=== PATIENT | male | born 1930 | race Caucasian/White ===

== ENCOUNTER 2016-12-07 20:36 | Emergency (ER) | payer MEDICARE, MEDICAID ==
[~2016-12-07] VITALS: Ht 175.3 cm; Wt 72.6 kg
--- NOTE | 2016-12-07 21:30 | NUR ---
PT A/OX2 BREATHING EFFORTLESSLY ON ROOM AIR, PT LIV FROM CUSTODIAL, PT WAS WALKING AND HIT HIS FOREHEAD INTO THE PAPER TOWEL DISPENSER, NO LOC PER EMS AND PT, PT IN GOWN ON MONITOR, MADE AWARE WILL CONTINUE TO MONITOR.
--- NOTE | 2016-12-07 22:15 | NUR ---
PT TO CT
--- NOTE | 2016-12-07 23:06 | NUR ---
CALLED [facility] FOR TRANSPORT BACK TO [facility], ETA 5 MIN
--- NOTE | 2016-12-07 23:24 | NUR ---
REPORT GIVEN TO EMT AND TO FACILITY
[2016-12-07 23:35] VITALS: BP 140/72
== END 2016-12-07 23:35 ==
LOC: ER 20:42
DX: S01.81XA Laceration without foreign body of other part of head, initial encounter (principal); F03.90 Unspecified dementia, unspecified severity, without behavioral disturbance, psychotic disturbance, mood disturbance, and anxiety; I10 Essential (primary) hypertension; I25.10 Atherosclerotic heart disease of native coronary artery without angina pectoris; J44.9 Chronic obstructive pulmonary disease, unspecified; W22.8XXA Striking against or struck by other objects, initial encounter; Y93.01 Activity, walking, marching and hiking; Y92.89 Other specified places as the place of occurrence of the external cause; Y99.8 Other external cause status
CPT/HCPCS: 70450; 72125; 99284; A4217; A4606; A6402; Z7610

== ENCOUNTER 2017-11-01 14:14 | Inpatient (IN) | payer MEDICARE, MEDICAID ==
[~2017-11-01] VITALS: Ht 180.3 cm; Wt 87.1 kg
--- NOTE | 2017-11-01 14:40 | NUR ---
BB PRIVATE EMS FROM [facility], SENT BY DR FELIZ FOR FAILURE TO THRIVE. VSS. FAMILY MEMBERS AT BS. SEEN BY MD FOR EVAL. SAFETY AND COMFORT MEASURES PROVIDED. WILL MONITOR.
[2017-11-01] MEDS ORDERED: IV NS 0.9% 500 ML BAG IV ONE (15:00)
[2017-11-01] MEDS ORDERED: ATOR10TA PO (15:09)
[2017-11-01] MEDS ORDERED: FENT1PAT2 TD (15:09)
[2017-11-01] MEDS ORDERED: BISA10SU8 RC (15:09)
[2017-11-01] MEDS ORDERED: ASPI-1169 PO (15:09)
[2017-11-01] MEDS ORDERED: BRIM5DRO EACHEYE (15:09)
[2017-11-01] MEDS ORDERED: DOCU-141 PO (15:09)
[2017-11-01] MEDS ORDERED: ALBU2.5V38 IH (15:09)
[2017-11-01] MEDS ORDERED: NA P133E RC (15:09)
[2017-11-01] MEDS ORDERED: CLOP75TA15 PO (15:12)
[2017-11-01] MEDS ORDERED: QUET25TA PO (15:12)
[2017-11-01] MEDS ORDERED: MELA5TAB PO (15:12)
[2017-11-01] MEDS ORDERED: OXYC-128 PO (15:12)
[2017-11-01] MEDS ORDERED: MAGN400O6 PO (15:12)
[2017-11-01] MEDS ORDERED: BENA20TA9 PO (15:12)
[2017-11-01] MEDS ORDERED: ACET-868 PO (15:13)
[2017-11-01] MEDS ORDERED: BUDE10.2 IH (15:13)
[2017-11-01] MEDS ORDERED: CHOL100044 PO (15:13)
[2017-11-01 15:17] LABS: BASOPHILS # (AUTO) 0.1 /CMM (0.0-0.2); EOSINOPHILS % (AUTO) 5.5 % (0.0-6.0); HEMATOCRIT 29 % (39-51); HEMOGLOBIN 9.5 g/dL (13.5-17.5); LYMPHOCYTES # (AUTO) 1.5 /CMM (0.8-4.8); LYMPHOCYTES % (AUTO) 14.6 % (20.0-44.0); MEAN CORPUSCULAR HGB CONC 32 g/dl (31.0-36.0); MEAN CORPUSCULAR VOLUME 68 fL (80-96); MONOCYTES # (AUTO) 0.8 /CMM (0.1-1.30); MONOCYTES % (AUTO) 7.2 % (2.0-12.0); NEUTROPHILS # (AUTO) 7.5 /CMM (1.8-8.9); NEUTROPHILS % (AUTO) 71.7 % (43.0-81.0); PLATELET COUNT (AUTO) 294 /CMM (150-450); RDW COEFFICIENT OF VARIATION 17.6 (11.5-15.0); RED BLOOD CELL COUNT(AUTO) 4.32 MIL/uL (4.5-6.0); WHITE BLOOD COUNT (AUTO) 10.5 K/uL (4.3-11.0)
[2017-11-01 15:25] LABS: CALCIUM, SERUM 9.2 mg/dL (8.5-10.1); CARBON DIOXIDE 27 mmol/L (21-32); CHLORIDE 105 mmol/L (98-107); CREATININE 1.9 mg/dL (0.6-1.3); GLUCOSE 111 mg/dL (74-106); POTASSIUM 4.5 mmol/L (3.5-5.1); SODIUM SERUM 137 mmol/L (136-145); UREA NITROGEN, BLOOD 26 mg/dL (7-18)
[2017-11-01 15:29] LABS: ALANINE AMINOTRANSFERASE 45 U/L (12-78); ALBUMIN 3.1 g/dL (3.4-5.0); ALCOHOL, BLOOD < 3 mg/dL (0-0); ALKALINE PHOSPHATASE 116 U/L (46-116); ASPARTATE AMINOTRANSFERASE 33 U/L (15-37); BILIRUBIN,DIRECT 0.2 mg/dL (0.0-0.2); BILIRUBIN,TOTAL 0.5 mg/dL (0.2-1.0); SALICYLATE 1.2 mg/dL (2.8-20.0); TOTAL PROTEIN, SERUM 7.1 g/dL (6.4-8.2)
[2017-11-01 15:30] LABS: ACETAMINOPHEN < 2 ug/ml (10-30)
--- NOTE | 2017-11-01 15:49 | NUR ---
CALLED [employer] CAROUSEL ATTENDANT WAS PAGED.
[2017-11-01] MEDS ORDERED: oxyCODONE/APAP (5/325 MG) 1 UDTAB TABLET PO PRN (16:00)
[2017-11-01] MEDS ORDERED: ACETAMINOPHEN 325 MG TABLET PO PRN ×2 (16:00→16:30)
[2017-11-01] MEDS ORDERED: MAGNESIUM HYDROXIDE 30 ML UDC PO PRN ×2 (16:00→16:30)
[2017-11-01] MEDS ORDERED: NA PHOS,M-B/NA PHOS,DI-BA 1 EA ENEMA RC PRN (16:00)
--- NOTE | 2017-11-01 16:29 | NUR ---
REPORT GIVEN TO RAN MORFIN FOR MS ROOM.
[2017-11-01] MEDS ORDERED: ONDANSETRON HCL/PF 4 MG/2 ML VIAL IVP PRN (16:30)
[2017-11-01] MEDS ORDERED: HYDROCODONE/APAP 5/325MG 1 EACH TABLET PO PRN (16:30)
[2017-11-01] MEDS ORDERED: MAG HYDROX/AL HYDROX/SIMETH 30 ML UDC PO PRN (16:30)
[2017-11-01] MEDS ORDERED: Z GUARD REMEDY 2 OZ OINT TP PRN (16:30)
[2017-11-01] MEDS ORDERED: ZOLPIDEM TARTRATE 5 MG TABLET PO PRN (16:30)
--- NOTE | 2017-11-01 17:00 | NUR ---
MS COMPLETION ENGINEER NOTES RECEIVED PT FROM ER NURSE IN STABLE CONDITION. PT IS A/O X1-2. NO SOB OR SIGNS OF DISTRESS NOTED. BREATHING IS EVEN AND UNLABORED. PT IS ON RA AND SATING WELL. HE WILL BE ADMITTED UNDER DR. FELIZ FOR FAILURE TO THRIVE ALONG WITH ACUTE RENAL FAILURE. IV NOTED TO RIGHT AC. IV NOTED TO BE PATENT AND INTACT. NO REDNESS OR SIGNS OF INFILTRATION NOTED. PT WAS ORIENTED TO ROOM AND VERBALIZED UNDERSTANDING OF USE OF CALL LIGHT. BELONGINGS VERIFIED BY PLASTIC BOAT PATCHER AND DOCUMENTED IN PT'S CHART. ORDERS NOTED BY . WILL BEGIN ADMISSION PROCESS AND AWAIT FOR ANY FURTHER ORDERS Addendum: 11/01/17 at 1848 by JANIE KELLY RN PT REFUSED TO TAKE OFF HIS PANTS AND SKIN ASSESSMENT FROM THE WAIST DOWN
[2017-11-01] MEDS ORDERED: FENTANYL TD PATCH (12 MCG/HR) 12 MCG/HR PATCH.TD72 TD SCH (18:00)
[2017-11-01] MEDS: CHOLECALCIFEROL 1,000 UNIT TABLET (VIT D3) PO SCH (18:16)
[2017-11-01] MEDS: BRIMONIDINE TARTRATE OPHT SOLN 5 ML BOTTLE EACHEYE SCH (18:17)
--- NOTE | 2017-11-01 18:45 | NUR ---
MS RN CLOSING NOTES PT REMAINS STABLE SINCE ADMISSION. VITALS STABLE AT THIS TIME. HE DENIES ANY PAIN. PT TOLERATING NS INFUSION WELL. HE WAS ABLE TO EAT 100% OF HIS DINNER. NEEDS ANTICIPATED FOR AND MET. BED IN LOW LOCKED POSITION, SIDE RAILS UP X2, CALL LIGHT WITHIN REACH, BED ALARM ON. WILL ENDORSE TO NIGHTSHIFT NURSE FOR RADHA
[2017-11-01] MEDS: ALBUTEROL FS 2.5 MG/0.5 ML VIAL.NEB NEB SCH ×2 (19:30→21:47)
--- NOTE | 2017-11-01 19:30 | NUR ---
MS HOLLEY INITIAL NOTES GOT REPORT FROM AM NURSE AND SEEN PT IN BED ON SITTING POSITION WHILE WATCHING TV AT THE SAME TIME. NOTICED HE'S WEARING HEADPHONE AND PT STATED THAT HE'S HEARING AID. RE-ORIENTED WHERE HE AT AND HE UNDERSTOOD WELL. OFFERED HIM SOME SNACK LATER AND PT STATED ONLY SOME JUICE AND CRACKERS. HE ALSO ON IVF OF NS AT 75ML/HR INFUSING ON HIS RIGHT FOREARM. NO REDNESS OR INFILTRATED NOTED. DENIES ANY PAIN OR ANY DISCOMFORT. KEPT HIM WARM AND COMFORTABLE AT ALL TIMES. PLACE CALL LIGHT AT REACH. BED ALARM SET FOR PT SAFETY.
[2017-11-01 20:00] VITALS: BP 111/57
[2017-11-01 20:34] VITALS: BP 111/57
[2017-11-01] MEDS ORDERED: Medication Not On Formulary EA (Budesonide/Formoterol Fumarate (Symbicort 160-4.5 Mcg In IH SCH (21:00)
[2017-11-01] MEDS: QUETIAPINE FUMARATE 25 MG TABLET PO SCH (21:24)
[2017-11-01] MEDS: ATORVASTATIN 10 MG TABLET PO SCH (21:24)
[2017-11-01] MEDS: DOCUSATE SODIUM 100 MG CAPSULE PO SCH (21:24)
--- NOTE | 2017-11-01 21:54 | NUR ---
MS PATTERNMAKER PLASTER NOTES OFFERED SNACKS JELO, PUDDING AND APPLE SAUCE THEN PT. STATED I WANT EVERYTHING. DAUGHTER AT THE BEDSIDE AND SHE'S HAPPY WITH THE RESPONSE OF THE PT . HE ATE AND DRINK WELL . NO ASPIRATION NOTED. ROUTINE MEDS ALSO GIVEN AND TOLERATED WELL. KEPT HIM WARM AND COMFORTABLE AT ALL TIMES. WILL CONTINUE MONITORING.
[2017-11-01] MEDS ORDERED: Medication Not On Formulary EA (Melatonin 10 MG) PO SCH (22:00)
--- NOTE | 2017-11-02 | NUR ---
MS GLASS PULVERIZER EQUIPMENT OPERATOR NOTES PT SLEEPING COMFORTABLY IN BED WITHOUT ANY ACUTE DISTRESS NOTED. AROUSES TO TOUCH. IVF STILL INFUSING . KEPT HIM WARM AND COMFORTABLE AT ALL TIMES. WILL CONTINUE TO MONITOR.
[2017-11-02] MEDS: BRIMONIDINE TARTRATE OPHT SOLN 5 ML BOTTLE EACHEYE SCH ×3 (01:10→17:02)
[2017-11-02] MEDS: ALBUTEROL FS 2.5 MG/0.5 ML VIAL.NEB NEB SCH ×6 (03:35→23:03)
[2017-11-02] MEDS: IV NS 0.9% 1,000 ML IV PRN (06:21)
--- NOTE | 2017-11-02 07:07 | NUR ---
MS PURCHASING CLERK CLOSING NOTES PT REMAINS SLEEPING COMFORTABLY IN BED WITHOUT ANY ACUTE DISTRESS NOTED. RESPIRATION EVEN AND NON-LABORED. STILL NEEDS TO RE-ORIENTED HIM HOW TO USED THE CALL LIGHT SYSTEM AND BED ALARM SET FOR SAFETY. STABLE STARR THE NIGHT AND SLEPT WELL. ABLE TO ATE WITHOUT ANY ASPIRATION NOTED. KEPT HIM WARM AND COMFORTABLE AT ALL TIMES. PLACE CALL LIGHT AT REACH. STILL ON IVF NS AT 75ML/HR. ENDORSE TO AM NURSE FOR CONTINUITY OF CARE. Addendum: 11/02/17 at 0707 by NE PÉREZ LVN
--- NOTE | 2017-11-02 07:15 | NUR ---
RN NOTES PT IS LAYING DOWN IN BED, AWAKE, RESTING COMFORTABLY. PT ON RA, RESPIRATIONS ARE EVEN AND UNLABORED. IV ON RFA INTACT AND SL. NO SIGNS OF DISTRESS NOTED. SAFETY MEASURES ARE IN PLACE, CALL LIGHT IS IN REACH. WILL CONTINUE TO MONITOR.
[2017-11-02 07:38] LABS: HEMATOCRIT 29 % (39-51); HEMOGLOBIN 8.8 g/dL (13.5-17.5); MEAN CORPUSCULAR HGB CONC 30 g/dl (31.0-36.0); MEAN CORPUSCULAR VOLUME 71 fL (80-96); PLATELET COUNT (AUTO) 258 /CMM (150-450); RDW COEFFICIENT OF VARIATION 19.4 (11.5-15.0); RED BLOOD CELL COUNT(AUTO) 4.09 MIL/uL (4.5-6.0); WHITE BLOOD COUNT (AUTO) 9.3 K/uL (4.3-11.0)
[2017-11-02 07:57] LABS: CALCIUM, SERUM 8.5 mg/dL (8.5-10.1); CARBON DIOXIDE 23 mmol/L (21-32); CHLORIDE 111 mmol/L (98-107); CREATININE 1.4 mg/dL (0.6-1.3); GLUCOSE 89 mg/dL (74-106); MAGNESIUM 1.9 mg/dL (1.8-2.4); PHOSPHORUS 4.1 mg/dL (2.5-4.9); POTASSIUM 4.3 mmol/L (3.5-5.1); SODIUM SERUM 144 mmol/L (136-145); UREA NITROGEN, BLOOD 20 mg/dL (7-18)
[2017-11-02 08:00] VITALS: BP 105/57
[2017-11-02] MEDS: CLOPIDOGREL BISULFATE 75 MG TABLET PO SCH (08:40)
[2017-11-02] MEDS: FLUTICASONE/VILANTEROL 1 EACH BLST.W.DEV IH SCH (08:40)
[2017-11-02] MEDS: ASPIRIN 81 MG TAB.CHEW PO SCH (08:40)
[2017-11-02 08:53] LABS: BAND % (MANUAL) 1 % (0.0-5.0); EOSINOPHILS % (MANUAL) 9 % (0-4); LYMPHOCYTES % (MANUAL) 24 % (16-48); MONOCYTES % (MANUAL) 9 % (0-11.0); NEUTROPHILS % (MANUAL) 57 (42-76)
--- NOTE | 2017-11-02 09:28 | NUR ---
WOUND CARE CONSULT: PT IS CONTINENT AND AMBULATORY WITH MULTIPLE SKIN LESIONS ON BACK AND RAISED AREA TO LEFT SHOULDER REGION, NO REDNESS, TENDERNESS OR DRAINAGE NOTED. DEFER TO . WILL SEE MERE. GIORGIO SCORE IS CURRENTLY 22. Addendum: 11/02/17 at 0929 by ARIAN BOGGS WNDNU Amended: Links added.
--- NOTE | 2017-11-02 10:30 | NUR ---
SHELBIE NOTES NASAL CANNULA ADDED WITH NON REBREATHER MASK TO PREVENT DESATURATION WHEN MASK REMOVED DURING EATING OR DRINKING. O2 SAT 95% Addendum: 11/02/17 at 1047 by VENKAT REBOLLEDO RN DISREGARD PREVIOUS NOTE, WRONG PATIENT.
[2017-11-02 16:00] VITALS: BP 122/70
[2017-11-02] MEDS: CHOLECALCIFEROL 1,000 UNIT TABLET (VIT D3) PO SCH (17:02)
--- NOTE | 2017-11-02 18:47 | NUR ---
RN NOTES PT SITTING UP IN BED, WATCHING TV, RESTING COMFORTABLY. PT ON RA, RESPIRATIONS ARE EVEN AND UNLABORED. IV ON RFA INTACT AND RUNNING NS @ 75ML/HR. ALL MEDS WERE GIVEN ORDERED AND PT NEEDS MET. NO SIGNS OF DISTRESS NOTED. SAFETY MEASURES ARE IN PLACE, CALL LIGHT IS IN REACH. WILL ENDORSE TO CONE FORMER RN FOR CONTINUITY OF CARE.
--- NOTE | 2017-11-02 19:35 | NUR ---
MS RN NOTES RECEIVED ON BED A/O X1-2,BREATHING REGULAR,NOT IN ANY FORM OF DISTRESS.IVF NS AT 75ML/HR RATE IN PROGRESS ON RFA,SITE PATENT.BLIND ON LEFT EYE,HARD OF HEARING.CONTINENT PER URINAL.CALL LIGHT IN REACH,NEEDS ANTICIPATED.
[2017-11-02 20:00] VITALS: BP 112/58
[2017-11-02] MEDS: DOCUSATE SODIUM 100 MG CAPSULE PO SCH (22:07)
[2017-11-02] MEDS: ATORVASTATIN 10 MG TABLET PO SCH (22:07)
[2017-11-02] MEDS: QUETIAPINE FUMARATE 25 MG TABLET PO SCH (22:07)
[2017-11-03] MEDS: BRIMONIDINE TARTRATE OPHT SOLN 5 ML BOTTLE EACHEYE SCH ×3 (01:30→17:29)
--- NOTE | 2017-11-03 02:00 | NUR ---
MS RN NOTES REFUSED BREATHING TREATMENT AT MIDNIGHT
[2017-11-03] MEDS: ALBUTEROL FS 2.5 MG/0.5 ML VIAL.NEB NEB SCH ×6 (03:30→23:57)
[2017-11-03] MEDS: IV NS 0.9% 1,000 ML IV PRN (03:47)
--- NOTE | 2017-11-03 06:19 | NUR ---
MS RN NOTES RESTING COMFORTABLY ON BED.IVF IN PROGRESS,NO EPISODE OF SOB,COMPLIANT WITH CARE AND MEDS.CALL LIGHT IN REACH,NEEDS ATTENDED.WILL ENDORSE TO VENKAT MORFIN FOR RADHA.
--- NOTE | 2017-11-03 07:10 | NUR ---
RN NOTES PT IS LAYING DOWN IN BED, SLEEPING COMFORTABLY. PT ON RA, RESPIRATIONS ARE EVEN AND UNLABORED. IV ON RFA INTACT AND RUNNING NS @ 75ML/HR. NO SIGNS OF DISTRESS NOTED. SAFETY MEASURES ARE IN PLACE, CALL LIGHT IS IN REACH. WILL CONTINUE TO MONITOR.
[2017-11-03 08:00] VITALS: BP 130/66
[2017-11-03] MEDS: ASPIRIN 81 MG TAB.CHEW PO SCH (08:02)
[2017-11-03] MEDS: FLUTICASONE/VILANTEROL 1 EACH BLST.W.DEV IH SCH (08:02)
[2017-11-03] MEDS: CLOPIDOGREL BISULFATE 75 MG TABLET PO SCH (08:02)
[2017-11-03 14:43] LABS: CALCIUM, SERUM 8.8 mg/dL (8.5-10.1); CARBON DIOXIDE 25 mmol/L (21-32); CHLORIDE 106 mmol/L (98-107); CREATININE 1.3 mg/dL (0.6-1.3); GLUCOSE 103 mg/dL (74-106); SODIUM SERUM 138 mmol/L (136-145); UREA NITROGEN, BLOOD 20 mg/dL (7-18)
[2017-11-03 14:53] LABS: HEMATOCRIT 31 % (39-51); HEMOGLOBIN 9.1 g/dL (13.5-17.5); MEAN CORPUSCULAR HGB CONC 30 g/dl (31.0-36.0); MEAN CORPUSCULAR VOLUME 72 fL (80-96); PLATELET COUNT (AUTO) 281 /CMM (150-450); RDW COEFFICIENT OF VARIATION 19.5 (11.5-15.0); RED BLOOD CELL COUNT(AUTO) 4.26 MIL/uL (4.5-6.0)
[2017-11-03 14:57] LABS: THYROID STIMULATING HORMONE 1.099 uIU/mL (0.358-3.74)
[2017-11-03 15:03] LABS: IRON, SERUM 21 ug/dl (50-175); TOTAL IRON BINDING CAPACITY 392 ug/dl (250-450)
[2017-11-03 15:23] LABS: BAND % (MANUAL) 2 % (0.0-5.0); EOSINOPHILS % (MANUAL) 10 % (0-4); LYMPHOCYTES % (MANUAL) 34 % (16-48); MONOCYTES % (MANUAL) 2 % (0-11.0); NEUTROPHILS % (MANUAL) 52 (42-76)
[2017-11-03 15:30] LABS: FERRITIN 7 ng/mL (8-388)
[2017-11-03 16:00] VITALS: BP_SYST 130; BP_SYST 141; BP_DIAS 59; BP_DIAS 66
[2017-11-03] MEDS: CHOLECALCIFEROL 1,000 UNIT TABLET (VIT D3) PO SCH (17:29)
--- NOTE | 2017-11-03 18:55 | NUR ---
RN NOTES PT IS SITTING UP IN BED, RESTING COMFORTABLY. PT ON RA, RESPIRATIONS ARE EVEN AND UNLABORED. IV ON RFA INTACT AND RUNNING NS @ 75ML/HR. ALL MEDS WERE GIVEN ORDERED AND PT NEEDS MET. NO SIGNS OF DISTRESS NOTED. SAFETY MEASURES ARE IN PLACE, CALL LIGHT IS IN REACH. WILL ENDORSE TO PARK INTERPRETIVE RANGER RN FOR CONTINUITY OF CARE.
--- NOTE | 2017-11-03 19:25 | NUR ---
MS RN OPENING NOTES: RECEIVED PT IN BED AND IS ASLEEP AT THIS TIME WITH HIS HEADPHONES ON. PT ON ROOM AIR. PT ON IV FLUIDS AND IS BEING INFUSED WITH IV NS AT 75ML/HR. CALL LIGHT WITHIN PT'S REACH. BED KEPT IN LOW, LOCKED POSITION, AND SIDE RAILS X 2UP. WILL CONTINUE TO MONITOR PT.
[2017-11-03 20:00] VITALS: BP 118/56
[2017-11-03] MEDS: QUETIAPINE FUMARATE 25 MG TABLET PO SCH (21:03)
[2017-11-03] MEDS: ATORVASTATIN 10 MG TABLET PO SCH (21:03)
[2017-11-03] MEDS: DOCUSATE SODIUM 100 MG CAPSULE PO SCH (21:03)
[2017-11-04] MEDS: IV NS 0.9% 1,000 ML IV PRN (00:18)
[2017-11-04] MEDS: BRIMONIDINE TARTRATE OPHT SOLN 5 ML BOTTLE EACHEYE SCH ×2 (00:19→08:05)
[2017-11-04] MEDS: ALBUTEROL FS 2.5 MG/0.5 ML VIAL.NEB NEB SCH ×4 (03:06→14:26)
--- NOTE | 2017-11-04 03:22 | NUR ---
MS RN NOTES: PT FOUND WITH IV PULLED OUT. NO BLEEDING NOTED. EXPLAINED TO PT THAT HE NEEDS A NEW ONE. EXPLAINED TO PT RISKS AND BENEFITS OF HAVING AN IV. EXPLAINED TO PT THAT HE NEEDS IV NS FOR HYDRATION. PT REFUSING. CHARGE NURSE AWARE. WILL TRY AGAIN AT ANOTHER TIME.
--- NOTE | 2017-11-04 05:43 | NUR ---
RN NOTES: PT STILL REFUSING IV START. EXPLAINED TO PT THE RISKS AND BENEFITS OF HAVING AN IV AND THE IMPORTANCE OF NS HYDRATION. PT STILL REFUSING. ENCOURAGED PT TO DRINK PO WATER. Addendum: 11/04/17 at 0546 by MARÍA NEVAREZ RN CHARGE NURSE AWARE.
--- NOTE | 2017-11-04 06:39 | NUR ---
MS RN CLOSING NOTES: ALL NEEDS WERE ATTENDED AND ANTICIPATED FOR. PT KEPT CLEAN, DRY, AND COMFORTABLE. PT REFUSING TO HAVE IV INSERTED. OFFERED TWICE AND STILL REFUSED. CALL LIGHT WITHIN PT'S REACH. BED KEPT IN LOW, LOCKED POSITION, AND SIDE RAILS X 2UP. WILL ENDORSE TO AM NURSE FOR RADHA.
--- NOTE | 2017-11-04 07:40 | NUR ---
MS RN OPENING NOTES RECEIVED PT LAYING IN BED WITH HOB SLIGHTLY ELEVATED, SLEEPING COMFORTABLY. EASILY TO AROUSE, RESPONSIVE. RESPIRATIONS ARE EVEN AND UNLABORED, NOT IN ANY ACUTE DISTRESS NOTED. RT AT BEDSIDE TO ADMINISTER BREATHING TX. NO C/O PAIN, N/V, SOB AT THIS TIME. NO IV ACCESS AT THIS TIME. WILL CONTINUE TO ATTEMPT TO INSERT NEW IV. WILL CONTINUE TO MONITOR THROUGHOUT SHIFT FOR CONTINUITY OF CARE.
[2017-11-04 08:00] VITALS: BP 94/51
[2017-11-04] MEDS: ASPIRIN 81 MG TAB.CHEW PO SCH (08:04)
[2017-11-04] MEDS: FLUTICASONE/VILANTEROL 1 EACH BLST.W.DEV IH SCH (08:04)
[2017-11-04] MEDS: CLOPIDOGREL BISULFATE 75 MG TABLET PO SCH (08:04)
[2017-11-04 08:50] VITALS: BP 94/57
--- NOTE | 2017-11-04 10:00 | NUR ---
MS RN NOTES PT SEEN AND EXAMINED BY DR. FELIZ W/ ORDERS FOR DISCHARGE. DISCHARGE PAPERWORKS READY, WAITING FOR DAUGHTER TO SIGN PAPERWORK. CALLED [facility], SPOKE WITH EZIO FOR REPORT.
--- NOTE | 2017-11-04 14:45 | NUR ---
PRECISION FARMING COORDINATOR NOTE PT DISCHARGED TO [facility] VIA AMBULANCE IN STABLE CONDITION ACCOMPANIED BY DTR ZOYA. ALL DUE MEDS GIVEN, NEEDS MET AND RENDERED. PT REMAINS A/O X2, AFEBRILE. RESPIRATIONS ARE EVEN AND UNLABORED, NOT IN ANY ACUTE DISTRESS NOTED. DENIES ANY PAIN, N/V, SOB. NO IV ACCESS. PT NOTED WITH NUMEROUS SKIN TAGS TO BACK AND LUMP ON UPPER LEFT BACK, PHOTOS TAKEN AND PLACED IN CHART. ABDOMEN REMAINS SOFT AND NONDISTENDED, BOWEL SOUNDS ARE PRESENT IN ALL 4 QUADRANTS UPON AUSCULTATION. DENIES ANY BLADDER DISCOMFORT. DTR ZOYA CAME TO GIVE HIM A CHANGE OF CLOTHES, ALL BELONGINGS TAKEN WITH PT. EXPLAINED DISCHARGED PAPERWORK TO PT AND DTR WITH VERBAL AND WRITTEN UNDERSTANDING. ID BAND REMOVED. PT LEFT VIA GURNEY IN STABLE CONDITION.
[2017-11-04] MEDS ORDERED: FENTANYL TD PATCH (12 MCG/HR) 12 MCG/HR PATCH.TD72 TD SCH (19:00)
== END 2017-11-04 14:51 | DRG 682 ==
LOC: ER 14:17 → MED 16:49
PROVIDERS: ADMIT Internal Medicine; ATTEND Internal Medicine
DX: N17.0 Acute kidney failure with tubular necrosis (principal); G92 Toxic encephalopathy; R62.7 Adult failure to thrive; I25.10 Atherosclerotic heart disease of native coronary artery without angina pectoris; I25.2 Old myocardial infarction; E86.0 Dehydration; I12.9 Hypertensive chronic kidney disease with stage 1 through stage 4 chronic kidney disease, or unspecified chronic kidney disease; N18.9 Chronic kidney disease, unspecified; E78.5 Hyperlipidemia, unspecified; M19.90 Unspecified osteoarthritis, unspecified site; D63.1 Anemia in chronic kidney disease; J44.9 Chronic obstructive pulmonary disease, unspecified; F32.9 Major depressive disorder, single episode, unspecified; F41.9 Anxiety disorder, unspecified; G40.909 Epilepsy, unspecified, not intractable, without status epilepticus; G89.29 Other chronic pain; Z91.14 Patient's other noncompliance with medication regimen; F29 Unspecified psychosis not due to a substance or known physiological condition; D17.1 Benign lipomatous neoplasm of skin and subcutaneous tissue of trunk; L72.3 Sebaceous cyst; H54.61 Unqualified visual loss, right eye, normal vision left eye; F03.90 Unspecified dementia, unspecified severity, without behavioral disturbance, psychotic disturbance, mood disturbance, and anxiety; Z95.5 Presence of coronary angioplasty implant and graft
CPT/HCPCS: 36415; 70450-TC; 76770-TC; 80048-TC; 80076-TC; 82140-TC; 82728-TC; 83540-TC; 83735-TC; 84100-TC; 84443-TC; 85025-TC; 87081-TC; A4606; G0480; J7030; J7040; Z7610

== ENCOUNTER 2018-05-23 10:00 | Inpatient (IN) | payer MEDICARE, MEDICAID ==
[~2018-05-23] VITALS: Ht 172.7 cm; Wt 85.7 kg
[~2018-05-23 10:00] MED LIST: ACET-868 PO; ALBU2.5V38 IH; ALPHAGAN 0.2% EACHEYE; ASPI-1169 PO; ATOR10TA PO; BENA20TA9 PO; BISA10SU8 RC; BUDE10.2 IH; CHOL100044 PO; CLOP75TA15 PO; DOCU-141 PO; FENT1PAT2 TD; MAGN400O6 PO; MELA3TAB PO; NA P133E RC; OXYC-128 PO; QUET25TA PO
--- NOTE | 2018-05-23 10:10 | NUR ---
PT LIV [facility] unit 190 "From [facility] resection of left upper back cyst. ALERT AND ORIENTED X 2, CONFUSED AT TIMES. ON ROOM AIR, BREATHING EVENLY AND UNLABORED. SKIN WARM TO TOUCH, AND WNL. NO FACIAL GRIMACE NOTED AT THIS TIME. IV ACCESS INITIATED. KEPT COMFORTABLE. WILL CONTINUE TO MONITOR ACCORDINGLY.
[2018-05-23 10:58] LABS: BASOPHILS # (AUTO) 0.2 /CMM (0.0-0.2); BASOPHILS % (AUTO) 2.2 % (0.0-2.0); EOSINOPHILS % (AUTO) 6.4 % (0.0-6.0); HEMATOCRIT 26 % (39-51); HEMOGLOBIN 7.5 g/dL (13.5-17.5); LYMPHOCYTES # (AUTO) 1.5 /CMM (0.8-4.8); LYMPHOCYTES % (AUTO) 17.1 % (20.0-44.0); MEAN CORPUSCULAR HGB CONC 29 g/dl (31.0-36.0); MEAN CORPUSCULAR VOLUME 67 fL (80-96); MONOCYTES # (AUTO) 0.8 /CMM (0.1-1.30); MONOCYTES % (AUTO) 8.9 % (2.0-12.0); NEUTROPHILS # (AUTO) 5.8 /CMM (1.8-8.9); NEUTROPHILS % (AUTO) 65.4 % (43.0-81.0); PLATELET COUNT (AUTO) 369 /CMM (150-450); RED BLOOD CELL COUNT(AUTO) 3.93 MIL/uL (4.5-6.0); WHITE BLOOD COUNT (AUTO) 8.9 K/uL (4.3-11.0)
[2018-05-23] MEDS ORDERED: IV NS 0.9% 1,000 ML BAG IV ONE (11:00)
[2018-05-23 11:08] LABS: CALCIUM, SERUM 8.9 mg/dL (8.5-10.1); CARBON DIOXIDE 26 mmol/L (21-32); CHLORIDE 104 mmol/L (98-107); CREATININE 1.7 mg/dL (0.6-1.3); GLUCOSE 97 mg/dL (74-106); POTASSIUM 4.6 mmol/L (3.5-5.1); SODIUM SERUM 137 mmol/L (136-145); UREA NITROGEN, BLOOD 33 mg/dL (7-18)
[2018-05-23 11:25] LABS: BAND % (MANUAL) 1 % (0.0-5.0); EOSINOPHILS % (MANUAL) 9 % (0-4); LYMPHOCYTES % (MANUAL) 16 % (16-48); MONOCYTES % (MANUAL) 4 % (0-11.0); NEUTROPHILS % (MANUAL) 70 (42-76)
[2018-05-23] MEDS ORDERED: HYDROCODONE/APAP 10/325MG 1 EA TABLET PO PRN (14:00)
[2018-05-23] MEDS ORDERED: MAGNESIUM HYDROXIDE 30 ML UDC PO PRN (14:00)
[2018-05-23] MEDS ORDERED: ONDANSETRON HCL/PF 4 MG/2 ML VIAL IVP PRN (14:00)
[2018-05-23] MEDS ORDERED: HYDROCODONE/APAP 5/325MG 1 EACH TABLET PO PRN (14:00)
[2018-05-23] MEDS ORDERED: ACETAMINOPHEN 325 MG TABLET PO PRN (14:00)
[2018-05-23] MEDS ORDERED: ZOLPIDEM TARTRATE 5 MG TABLET PO PRN (14:00)
[2018-05-23] MEDS ORDERED: Z GUARD REMEDY 2 OZ OINT TP PRN (14:00)
[2018-05-23] MEDS ORDERED: MAG HYDROX/AL HYDROX/SIMETH 30 ML UDC PO PRN (14:00)
--- NOTE | 2018-05-23 14:16 | NUR ---
patient wheeled via gurney accompanied by EMT in no apparent distress noted. no facial grimace. going to room 308-2 MS.
[2018-05-23] MEDS ORDERED: IPRATROPIUM NEB FS 0.5 MG/2.5 ML AMPUL.NEB NEB PRN (14:30)
[2018-05-23] MEDS ORDERED: ALBUTEROL FS 2.5 MG/3 ML VIAL.NEB NEB PRN (14:30)
--- NOTE | 2018-05-23 14:45 | NUR ---
PT RECEIVED ALERT TO SELF, DTR AT BEDSIDE. PT TOLERATING ROOM AIR WITHOUT DISTRESS AND SPO2 WNL. PT DENIES PAIN AND WITHOUT OBVIOUS S/S OF PAIN OR DISCOMFORT. PT LEGALLY BLIND AND ALMOST TOTALLY DEAF. PT VITALS CHARTED. BELONGS LIST CHARTED BY FLASH RANGING CREWMEMBER WITH VALUABLES DETAILED, DTR ZOYA REFUSING GARMENT COUNT STATING SHE WILL MANAGING PTS CLOTHES AND ITEMS DURING STAY R/T TO PT BLINDNESS. PT WITH IVC A R HAND G 20 INTACT AND SALINE FLUSH PATENT. PT AND DTR BRIEFED ON POC AND AER VERBALIZING UNDERSTANDING AND ARE WITHOUT CONCERN OR COMPLAINT AT THIS TIME.
[2018-05-23 15:00] VITALS: BP 118/64
[2018-05-23 16:00] VITALS: BP 110/55
[2018-05-23] MEDS: CEFTRIAXONE 1 G in IV D5W 50 ML IV SCH (16:18)
[2018-05-23] MEDS: IV NS 0.9% 1,000 ML IV PRN (16:19)
--- NOTE | 2018-05-23 18:11 | NUR ---
PT REMAINS ALERT TO SELF, DTR AT BEDSIDE. PT TOLERATING ROOM AIR WITHOUT DISTRESS AND DENIES PAIN AND WITHOUT OBVIOUS S/S OF PAIN OR DISCOMFORT. PT WITH IVC A R HAND G 20 INTACT AND SALINE FLUSH PATENT. PT BED IN LOWEST LOCKED POSITION WITH HANDRAILSX2 AND CALL CRESPO WITHIN REACH. ALL DAY NURSE DUTIES ATTENDED TO AND PT AND DTR ARE WITHOUT CONCERN OR COMPLAINT AT THIS TIME.
--- NOTE | 2018-05-23 19:45 | NUR ---
MS RN NOTE RECEIVED PT IN STABLE CONDITION A&O X1. ZOYA (DAUGHTER) AT BEDSIDE. NO SIGNS OF SOB OR DISTRESS. IV R HAND #20 PATENT AND INTACT WITH NS @75 ML/HR INFUSING AND TOLERATING WELL. SAFETY MEASURES IN PLACE WITH BED LOW AND LOCKED POSITION, UPPER BED RAILS UP X2, NAD CALL LIGHT WITHIN REACH. WILL CONT. TO MONITOR.
[2018-05-23 20:00] VITALS: BP 95/42
[2018-05-24] VITALS (8 sets, daily range): BP systolic 93–124; BP diastolic 40–60
[2018-05-24] MEDS: IV NS 0.9% 1,000 ML IV PRN (03:58)
--- NOTE | 2018-05-24 06:17 | NUR ---
MS RN NOTE PT IN STABLE CONDITION A&O X1. ZOYA (DAUGHTER) AT BEDSIDE. NO SIGNS OF SOB OR DISTRESS. IV R HAND #20 PATENT AND INTACT WITH NS @75 ML/HR INFUSING AND TOLERATING WELL. SAFETY MEASURES IN PLACE WITH BED LOW AND LOCKED POSITION, UPPER BED RAILS UP X2, AND CALL LIGHT WITHIN REACH. WILL CONT. TO MONITOR AND ENDORSE TO NEXT SHIFT FOR CONT. OF CARE.
--- NOTE | 2018-05-24 07:14 | NUR ---
MS RN OPENING NOTE RECEIVED PATIENT IN BED. SLEEPING, EASILY AROUSED WITH VERBAL STIMULI. ORIENTED TO SELF. ON ROOM AIR. TOLERATING WELL. IN NO APPARENT DISTRESS OR DISCOMFORT AT THIS TIME. RESPIRATIONS EVEN AND UNLABORED. DENIES PAIN AND SOB. PATIENT IS CONTINENT WITH BATHROOM USE WITH ASSIST. RIGHT HAND 20G IVC WITH FLUIDS RUNNING AT 75ML/HR, INTACT. PATIENT KEPT CLEAN AND COMFORTABLE. ALL NEEDS ATTENDED, SAFETY MEASURES IN PLACE, BED IN LOW LOCKED POSITION, SIDE RAILS UP X2, CALL LIGHT WITHIN EASY REACH. WILL CONTINUE TO MONITOR.
[2018-05-24 07:38] LABS: BASOPHILS # (AUTO) 0.1 /CMM (0.0-0.2); BASOPHILS % (AUTO) 1.2 % (0.0-2.0); EOSINOPHILS % (AUTO) 7.1 % (0.0-6.0); HEMATOCRIT 24 % (39-51); LYMPHOCYTES # (AUTO) 2.1 /CMM (0.8-4.8); LYMPHOCYTES % (AUTO) 20.5 % (20.0-44.0); MEAN CORPUSCULAR HGB CONC 29 g/dl (31.0-36.0); MEAN CORPUSCULAR VOLUME 68 fL (80-96); MONOCYTES # (AUTO) 0.7 /CMM (0.1-1.30); MONOCYTES % (AUTO) 7.1 % (2.0-12.0); NEUTROPHILS # (AUTO) 6.7 /CMM (1.8-8.9); NEUTROPHILS % (AUTO) 64.1 % (43.0-81.0); PLATELET COUNT (AUTO) 332 /CMM (150-450); WHITE BLOOD COUNT (AUTO) 10.5 K/uL (4.3-11.0)
[2018-05-24 07:58] LABS: CALCIUM, SERUM 8.3 mg/dL (8.5-10.1); CARBON DIOXIDE 21 mmol/L (21-32); CHLORIDE 109 mmol/L (98-107); CREATININE 1.6 mg/dL (0.6-1.3); GLUCOSE 107 mg/dL (74-106); MAGNESIUM 2.1 mg/dL (1.8-2.4); PHOSPHORUS 2.9 mg/dL (2.5-4.9); POTASSIUM 4.4 mmol/L (3.5-5.1); SODIUM SERUM 141 mmol/L (136-145); UREA NITROGEN, BLOOD 32 mg/dL (7-18)
[2018-05-24 08:02] LABS: HEMOGLOBIN 6.9 g/dL (13.5-17.5)
[2018-05-24 08:08] LABS: EOSINOPHILS % (MANUAL) 9 % (0-4); LYMPHOCYTES % (MANUAL) 22 % (16-48); MONOCYTES % (MANUAL) 6 % (0-11.0); NEUTROPHILS % (MANUAL) 63 (42-76)
[2018-05-24] MEDS: PANTOPRAZOLE 40 MG TABLET.DR PO SCH (09:50)
--- NOTE | 2018-05-24 12:00 | NUR ---
PER MOMO LASSITER'S ORDER OBTAIN STOOL SAMPLE FOR OCCULT BLOOD TEST. NOTED AND CARRIED OUT.
[2018-05-24] MEDS: CEFTRIAXONE 1 G in IV D5W 50 ML IV SCH (13:04)
--- NOTE | 2018-05-24 18:23 | NUR ---
OBTAINED CONSENT FOR BLOOD TRANSFUSION FROM PATIENT'S DAUGHTER. HOWEVER SHE REQUESTED NOT TO HAVE IT STARTED UNTIL SHE IS IN THE ROOM WITH HER FATHER. SHE MADE THE SAME REQUEST EARLIER THEN LEFT THE UNIT. JUST CAME BACK FOR A FEW MINUTES TO CHECK ON HIM AND LEAVE. STATED SHE WILL BE BACK SHORTLY AND SHE IS GOING TO STAY IN THE ROOM THE WHOLE NIGHT. WILL ENDORSE TO SLEEVE FIXER.
--- NOTE | 2018-05-24 18:27 | NUR ---
PATIENT'S DAUGHTER REFUSED TO SIGN THE PLANNED PROCEDURE CONSENT AT THIS TIME. STATING HER FATHER DOES NOT WANT IT AND SHE WANTS TO SPEAK TO THE DOCTOR AGAIN BEFORE SHE SIGNS. NOTIFIED ROBERT CHAVEZ AT THIS TIME. WILL FOLLOW UP.
--- NOTE | 2018-05-24 19:26 | NUR ---
MS RN CLOSING NOTE PATIENT IN BED. ALERT ORIENTED X1-2. VERY HARD OF HEARING. ON ROOM AIR, TOLERATING WELL. IN NO APPARENT DISTRESS OR DISCOMFORT AT THIS TIME. RESPIRATIONS EVEN AND UNLABORED. DENIES PAIN AND SOB. PATIENT IS CONTINENT WITH BATHROOM USE WITH ASSIST. LEFT FA 20G IVC WITH FLUIDS RUNNING AT 75ML/HR, PATENT AND INTACT. PATIENT KEPT CLEAN AND COMFORTABLE. ALL NEEDS ATTENDED, ORDERS RENDERED, SAFETY MEASURES IN PLACE, BED IN LOW LOCKED POSITION, SIDE RAILS UP X2, CALL LIGHT WITHIN EASY REACH. WILL ENDORSE TO PM NURSE FOR RADHA.
--- NOTE | 2018-05-24 19:55 | NUR ---
MS RN NOTE RECEIVED PT IN STABLE CONDITION. A&O X1-2. PT. DAUGHTER AT BEDSIDE. WILL ADMINISTER PRBCs ORDERED. IV ON L FA #20 PATENT AND INTACT. SAFETY MEASURES IN PLACE: BED LOW, LOCKED, UPPER BED RAILS UP X2, AND CALL LIGHT WITHIN REACH. WILL CONT TO MONITOR.
[2018-05-24 22:44] LABS: OCCULT BLOOD STOOL NEGATIVE (NEGATIVE)
[2018-05-25 06:18] LABS: BASOPHILS # (AUTO) 0.1 /CMM (0.0-0.2); BASOPHILS % (AUTO) 1.5 % (0.0-2.0); EOSINOPHILS % (AUTO) 9.4 % (0.0-6.0); HEMATOCRIT 26 % (39-51); HEMOGLOBIN 7.7 g/dL (13.5-17.5); LYMPHOCYTES # (AUTO) 2.2 /CMM (0.8-4.8); LYMPHOCYTES % (AUTO) 24.7 % (20.0-44.0); MEAN CORPUSCULAR HGB CONC 30 g/dl (31.0-36.0); MEAN CORPUSCULAR VOLUME 69 fL (80-96); MONOCYTES # (AUTO) 0.8 /CMM (0.1-1.30); MONOCYTES % (AUTO) 9.2 % (2.0-12.0); NEUTROPHILS # (AUTO) 4.9 /CMM (1.8-8.9); NEUTROPHILS % (AUTO) 55.2 % (43.0-81.0); PLATELET COUNT (AUTO) 300 /CMM (150-450); RED BLOOD CELL COUNT(AUTO) 3.71 MIL/uL (4.5-6.0); WHITE BLOOD COUNT (AUTO) 8.8 K/uL (4.3-11.0)
--- NOTE | 2018-05-25 06:18 | NUR ---
MS RN NOTE PT IN STABLE CONDITION. A&O X1-2. PT. DAUGHTER AT BEDSIDE. BLOOD TRANSFUSION FOR PRBCs GIVEN AND TOLERATED WELL. PT CURRENTLY NPO FOR DEBRIDEMENT TODAY. ALL CONSENTS SIGNED BY DAUGHTER AND CHECKLIST DONE. IV ON L FA #20 PATENT AND INTACT. SAFETY MEASURES IN PLACE: BED LOW, LOCKED, UPPER BED RAILS UP X2, AND CALL LIGHT WITHIN REACH. WILL CONT TO MONITOR AND ENDORSE TO NEXT SHIFT FOR RADHA.
[2018-05-25 06:27] LABS: CALCIUM, SERUM 8.2 mg/dL (8.5-10.1); CARBON DIOXIDE 22 mmol/L (21-32); CHLORIDE 110 mmol/L (98-107); CREATININE 1.5 mg/dL (0.6-1.3); GLUCOSE 93 mg/dL (74-106); POTASSIUM 4.6 mmol/L (3.5-5.1); SODIUM SERUM 140 mmol/L (136-145); UREA NITROGEN, BLOOD 21 mg/dL (7-18)
[2018-05-25] MEDS: IV NS 0.9% 1,000 ML IV PRN (06:33)
[2018-05-25 06:49] LABS: BASOPHILS % (MANUAL) 1 % (0.0-2.0); EOSINOPHILS % (MANUAL) 5 % (0-4); LYMPHOCYTES % (MANUAL) 27 % (16-48); MONOCYTES % (MANUAL) 5 % (0-11.0); NEUTROPHILS % (MANUAL) 62 (42-76)
[2018-05-25] MEDS ORDERED: ANESTHESIA TRAY IN PYXIS 1 EA TRAY MC ONE (07:16)
[2018-05-25] MEDS ORDERED: LIDOCAINE HCL/PF 1% 30 ML SDV ONE (07:16)
[2018-05-25] MEDS ORDERED: BUPIVACAINE MPF 0.5% W/EPI INJ 30 ML VIAL ONE (07:16)
--- NOTE | 2018-05-25 07:20 | NUR ---
pt is out from floor for surgery will continue with care when back
[2018-05-25] MEDS ORDERED: ROCURONIUM BROMIDE 50 MG/5 ML ONE (07:40)
[2018-05-25] MEDS ORDERED: BACITRACIN 50000 UNITS/VIAL ONE (08:04)
[2018-05-25] MEDS ORDERED: ALBUTEROL FS 2.5 MG/3 ML VIAL.NEB ONE (08:37)
[2018-05-25] MEDS: PANTOPRAZOLE 40 MG TABLET.DR PO SCH (09:27)
[2018-05-25] MEDS: CEFTRIAXONE 1 G in IV D5W 50 ML IV SCH (15:24)
[2018-05-25 16:00] VITALS: BP 119/53
--- NOTE | 2018-05-25 19:45 | NUR ---
RN NOTES RECEIVED PATIENT IN STABLE CONDITION. BREATHING EVEN AND NON LABORED, ALERT & ORIENTED X1-2. PATIENT'S DAUGHTER AT BEDSIDE. IV ACCESS ON LEFT FA G#20 PATENT AND INTACT. SAFETY MEASURES IN PLACE: BED LOW, LOCKED, UPPER BED RAILS UP X2, AND CALL LIGHT WITHIN REACH. WILL CONTINUE TO MONITOR.
[2018-05-25 20:00] VITALS: BP 139/70
[2018-05-25 22:00] VITALS: BP 139/70
--- NOTE | 2018-05-25 22:00 | NUR ---
RN Notes Received patient asleep, HOB elevated, no signs of distress and discomfort noted. Iv access on left forearm patent and intact with ongoing IVF infusing well. Daughter at bedside Safety measures in place. Will continue to monitor patient.
[2018-05-26] MEDS: IV NS 0.9% 1,000 ML IV PRN ×2 (05:47→21:08)
--- NOTE | 2018-05-26 06:17 | NUR ---
RN notes Patient stable overnight, no significant change in condition noted. Patient denies any pain overnight. Wound dressing clean dry and intact. All needs attended. Fall precaution observed. Will endorse to morning RN for continuity of care.
--- NOTE | 2018-05-26 07:00 | NUR ---
MS RN NOTES PATIENT IN BED ALERT ORIENTED X 1-2. NO ACUTE DISTRESS NOTED, BREATHING UNLABORED. NO SOB NOTED. IV ACCESS PATENT AND INTACT. NO REDNESS OR SWELLING NOTED. SAFETY MEASURES IN PLACE, CALL LIGHT WITHIN REACH. WILL CONTINUE TO MONITOR ACCORDINGLY.
[2018-05-26 07:09] LABS: BASOPHILS # (AUTO) 0.1 /CMM (0.0-0.2); BASOPHILS % (AUTO) 0.5 % (0.0-2.0); HEMATOCRIT 25 % (39-51); HEMOGLOBIN 7.3 g/dL (13.5-17.5); LYMPHOCYTES % (AUTO) 15.5 % (20.0-44.0); MEAN CORPUSCULAR HGB CONC 29 g/dl (31.0-36.0); MEAN CORPUSCULAR VOLUME 69 fL (80-96); MONOCYTES % (AUTO) 8.1 % (2.0-12.0); NEUTROPHILS # (AUTO) 9.3 /CMM (1.8-8.9); NEUTROPHILS % (AUTO) 73.9 % (43.0-81.0); PLATELET COUNT (AUTO) 281 /CMM (150-450); RED BLOOD CELL COUNT(AUTO) 3.61 MIL/uL (4.5-6.0); WHITE BLOOD COUNT (AUTO) 12.6 K/uL (4.3-11.0)
[2018-05-26] MEDS: PANTOPRAZOLE 40 MG TABLET.DR PO SCH (08:00)
[2018-05-26 08:42] VITALS: BP 99/53
--- NOTE | 2018-05-26 09:51 | NUR ---
MS RN NOTES SEEN AND EVALUATED BY EFREN LASSITER, AWARE OF LABORATORY RESULT INCLUDING ELEVATED WBC WITH NEW ORDERS MADE, NOTED AND CARRIED OUT.
[2018-05-26] MEDS ORDERED: FEE PK DOSING 1 MIN EA MC ONE (10:27)
[2018-05-26] MEDS ORDERED: ACETAMINOPHEN 325 MG TABLET PO PRN (11:30)
[2018-05-26] MEDS ORDERED: NA PHOS,M-B/NA PHOS,DI-BA 1 EA ENEMA RC PRN (11:30)
[2018-05-26] MEDS ORDERED: POLYVINYL ALCOHOL 15 ML BOTTLE EACHEYE PRN (11:30)
[2018-05-26] MEDS ORDERED: MAGNESIUM HYDROXIDE 30 ML UDC PO PRN (11:30)
[2018-05-26] MEDS ORDERED: BISACODYL SUPP (10 MG) 10 MG/SUPP.RECT SUPP.RECT RC PRN (11:30)
[2018-05-26] MEDS: VANCOMYCIN 1 GM in IV D5W 250 ML IV SCH (11:56)
[2018-05-26] MEDS: BRIMONIDINE TARTRATE OPHT SOLN 5 ML BOTTLE OP SCH ×2 (13:51→21:07)
[2018-05-26] MEDS: CEFTRIAXONE 1 G in IV D5W 50 ML IV SCH (14:43)
--- NOTE | 2018-05-26 14:47 | NUR ---
MS RN NOTES PATIENT COMPLAINT OF 3/10 PAIN ON LEFT UPPER BACK, TYLENOL GIVE PRESCRIBED.
[2018-05-26] MEDS: ALBUTEROL FS 2.5 MG/3 ML VIAL.NEB NEB SCH ×2 (15:30→19:35)
[2018-05-26 16:08] VITALS: BP 92/48
[2018-05-26] MEDS: CHOLECALCIFEROL 1,000 UNIT TABLET (VIT D3) PO SCH (17:30)
--- NOTE | 2018-05-26 19:00 | NUR ---
MS RN NOTES PATIENT IN BED ALERT ORIENTED X 1-2. NO ACUTE DISTRESS NOTED, BREATHING UNLABORED. NO SOB NOTED. IV ACCESS PATENT AND INTACT. NO REDNESS OR SWELLING NOTED.DUE MEDICATIONS GIVEN, NO ASE NOTED. NEEDS ATTENDED AND ANTICIPATED. KEPT CLEAN DRY AND COMFORTABLE. SAFETY MEASURES IN PLACE, CALL LIGHT WITHIN REACH. ENDORSED TO NIGHT NURSE FOR CONTINUITY OF CARE.
--- NOTE | 2018-05-26 19:50 | NUR ---
RN NOTES RECEIVED PATIENT IN STABLE CONDITION. RESTING COMFORTABLY IN BED, BREATHING EVEN AND NON LABORED, ALERT & ORIENTED X1-2. PATIENT'S DAUGHTER AT BEDSIDE. IV ACCESS ON HIS LEFT FA G#20 PATENT AND INTACT. SAFETY MEASURES IN PLACE: BED LOW, LOCKED, UPPER BED RAILS UP X2, AND CALL LIGHT WITHIN REACH. WILL CONTINUE TO MONITOR ACCORDINGLY.
[2018-05-26 20:00] VITALS: BP 89/45
[2018-05-26] MEDS ORDERED: Medication Not On Formulary EA (Budesonide/Formoterol Fumarate (Symbicort 160-4.5 Mcg In IH SCH (21:00)
[2018-05-26] MEDS ORDERED: DOCUSATE SODIUM 100 MG CAPSULE PO SCH (22:00)
[2018-05-26] MEDS ORDERED: ATORVASTATIN 10 MG TABLET PO SCH (22:00)
[2018-05-26] MEDS ORDERED: QUETIAPINE FUMARATE 25 MG TABLET PO SCH (22:00)
[2018-05-26 22:54] VITALS: BP 104/48
[2018-05-27] MEDS: ALBUTEROL FS 2.5 MG/3 ML VIAL.NEB NEB SCH ×5 (00:05→15:30)
[2018-05-27] MEDS: BRIMONIDINE TARTRATE OPHT SOLN 5 ML BOTTLE OP SCH ×2 (05:20→13:48)
--- NOTE | 2018-05-27 07:15 | NUR ---
RN NOTES PATIENT ABLE TO REST AND SLEEP DURING THE SHIFT.ENDORSE TO AM NURSE FOR CONTINUITY OF CARE.
[2018-05-27 07:47] LABS: CALCIUM, SERUM 7.3 mg/dL (8.5-10.1); CARBON DIOXIDE 24 mmol/L (21-32); CHLORIDE 112 mmol/L (98-107); CREATININE 1.3 mg/dL (0.6-1.3); GLUCOSE 91 mg/dL (74-106); POTASSIUM 4.3 mmol/L (3.5-5.1); SODIUM SERUM 142 mmol/L (136-145); UREA NITROGEN, BLOOD 18 mg/dL (7-18)
[2018-05-27] MEDS: PANTOPRAZOLE 40 MG TABLET.DR PO SCH (07:50)
[2018-05-27 08:00] VITALS: BP 113/59
[2018-05-27] MEDS ORDERED: FLUTICASONE/VILANTEROL 1 EACH BLST.W.DEV IH SCH (09:00)
[2018-05-27] MEDS ORDERED: BENAZEPRIL HCL 20 MG TABLET PO SCH (09:00)
[2018-05-27] MEDS: IV NS 0.9% 1,000 ML IV PRN (10:28)
[2018-05-27] MEDS: VANCOMYCIN 1 GM in IV D5W 250 ML IV SCH (10:28)
[2018-05-27] MEDS: CEFTRIAXONE 1 G in IV D5W 50 ML IV SCH (13:48)
[2018-05-27] MEDS ORDERED: LACTOBACILLUS RHAMNOSUS GG 1 EACH CAP.SPRINK PO SCH (17:00)
[2018-05-27] MEDS: CHOLECALCIFEROL 1,000 UNIT TABLET (VIT D3) PO SCH (17:03)
--- NOTE | 2018-05-27 17:15 | NUR ---
MS OUTSIDE PARTS SALES NOTES PATIENT DISCHARGE TO [facility]. ALERT ORIENTED X 1-2. NO ACUTE DISTRESS NOTED, BREATHING UNLABORED. NO SOB NOTED. IV ACCESS REMOVED, NO REDNESS OR SWELLING NOTED, NO BLEEDING NOTED. DISCHARGE INSTRUCTION REPORT GIVEN TO MELANIE MORFIN OF [facility]. ALL BELONGINGS ACCOUNTED FOR. NEEDS ATTENDED AND ANTICIPATED. KEPT CLEAN DRY AND COMFORTABLE. DUE MEDICATIONS GIVEN, NO ASE NOTED. LEFT UPPER BACK DRESSING KEPT INTACT CLEAN AND DRY. PICKED UP VIA AMBULANCE IN A GURNEY ACCOMPANIED BY 2 EMT PERSONNEL IN STABLE CONDITION. ACCOMPANIED BY DAUGHTER.
== END 2018-05-27 17:15 | DRG 856 ==
LOC: ER 10:03 → MEDSG2 11:56 → MED 12:32
PROVIDERS: ADMIT Nurse Practitioner Acute Care; ATTEND Nurse Practitioner Acute Care
PROC: 30233N1 Transfusion of Nonautologous Red Blood Cells into Peripheral Vein, Percutaneous Approach (ICD-10-PCS; 2018-05-24)
PROC: 0JB70ZZ Excision of Back Subcutaneous Tissue and Fascia, Open Approach (ICD-10-PCS; principal; 2018-05-25)
DX: T81.49XA Infection following a procedure, other surgical site, initial encounter (principal); K85.90 Acute pancreatitis without necrosis or infection, unspecified; N17.0 Acute kidney failure with tubular necrosis; E44.0 Moderate protein-calorie malnutrition; L03.114 Cellulitis of left upper limb; G93.40 Encephalopathy, unspecified; N17.9 Acute kidney failure, unspecified; Y83.9 Surgical procedure, unspecified as the cause of abnormal reaction of the patient, or of later complication, without mention of misadventure at the time of the procedure; Y92.129 Unspecified place in nursing home as the place of occurrence of the external cause; E78.5 Hyperlipidemia, unspecified; D63.8 Anemia in other chronic diseases classified elsewhere; E86.0 Dehydration; F03.90 Unspecified dementia, unspecified severity, without behavioral disturbance, psychotic disturbance, mood disturbance, and anxiety; J44.9 Chronic obstructive pulmonary disease, unspecified; K21.9 Gastro-esophageal reflux disease without esophagitis; I12.9 Hypertensive chronic kidney disease with stage 1 through stage 4 chronic kidney disease, or unspecified chronic kidney disease; N18.9 Chronic kidney disease, unspecified; Z79.899 Other long term (current) drug therapy; Z79.82 Long term (current) use of aspirin; Z79.51 Long term (current) use of inhaled steroids; G89.4 Chronic pain syndrome; H40.9 Unspecified glaucoma; E86.1 Hypovolemia; I25.10 Atherosclerotic heart disease of native coronary artery without angina pectoris; R62.7 Adult failure to thrive; H91.91 Unspecified hearing loss, right ear; F29 Unspecified psychosis not due to a substance or known physiological condition; F32.9 Major depressive disorder, single episode, unspecified; H91.10 Presbycusis, unspecified ear
CPT/HCPCS: 36415; 80048-TC; 82272-TC; 83735-TC; 84100-TC; 85025-TC; 85730-TC; 86850-TC; 86921-TC; 87081-TC; 88305-TC; 93307-TC; A6402; G0378; J0690; J0696; J1100; J2405; J2704; J2710; J3370; J3490; J7030; J7050; J7060; P9016-BL